=== PATIENT | female | born 1965 | race Caucasian/White ===

== ENCOUNTER → 2017-09-11 | Outpatient (CLI) | payer BC ==
[~2017-09-11] MED LIST: BACTRIM DS 8001 TA1 PO; CIPRO500 MG PO; FLAGYL250 MG PO; GLYBURIDE5 MG PO; METFORMIN500 MG PO; MICRONASE5 MG PO; NAPROSYN500 MG PO; NORCO 325 MG-51 TAB PO; PHENERGAN W/ DE30 ML PO; PREDNICOT10 MG PO; PROAIR HFA0.09 MG/AC INH; ZOFRAN4 MG PO
== END | disposition home or self-care (01) ==
LOC: RAD 14:50
DX: D16.02 Benign neoplasm of scapula and long bones of left upper limb (principal)

== ENCOUNTER → 2017-10-03 | Outpatient (CLI) | payer BC | END | disposition home or self-care (01) | LOC: MAMMO 10:12 | DX: N63.20 Unspecified lump in the left breast, unspecified quadrant (principal); N63.10 Unspecified lump in the right breast, unspecified quadrant ==

== ENCOUNTER 2019-03-09 17:43 | Emergency (ER) | payer OTHER ==
[~2019-03-09] VITALS: Wt 80.2 kg
--- NOTE | ~2019-03-09 | EKG ---
[place], [place] ELECTROCARDIOGRAM REPORT NAME: ANIKA FAM UNIT #: [id number] ROOM: DOCTOR: EPIPHANY DRAFT REPORT BIRTHDATE: [birth year] [facility] Test Date: 2019-03-09 Test Time: 18:23:56 Pat Name: ANIKA FAM Department: Room: Gender: F [employer]: : 1965 Requested By: SALOME FERGUSON Order Number: [id number] Reading MD: Karol Gupta MD Measurements Intervals [place] Rate: 101 P: 42 OK: 120 QRS: 12 QRSD: 77 T: 33 QT: 350 QTc: 454 Interpretive Statements Sinus tachycardia Normal ECG Compared to ECG 02/19/2019 13:35:58 Sinus rhythm no longer present T-wave abnormality no longer present Electronically Signed On 03-12-2019 7:14:52 PDT by Karol Gupta MD CM:EKGRPT:ELECTROCARDIOGRAM REPORT [id number] SALOME ROWLAND DRAFT REPORT SALOME FERGUSON MD
[~2019-03-09 17:43] MED LIST changes: +ASPIRIN ADULT L81 M1 PO; +METFORMIN ER500 MG PO; +SIMVASTATIN40 MG PO; +TAMOXIFEN CITRA20 MG PO; +VITAMIN D-32000 UNI1 PO
[2019-03-09 18:34] LABS: BASO # 0.1 10*3/uL (0.0-0.1); BASO % 0.9 % (0.0-1.0); EOS # 0.3 10*3/uL (0.0-0.4); EOS % 3.6 % (1.0-4.0); HEMATOCRIT 39.3 % (37.0-47.0); HEMOGLOBIN 13.2 g/dl (12.0-16.0); LYMPH # 1.9 10*3/uL (1.3-4.4); LYMPH % 23.3 % (27.0-41.0); MEAN CELL VOLUME 85.1 fl (81.0-99.0); MEAN CORPUSCULAR HGB 28.6 pg (27.0-31.0); MEAN CORPUSCULAR HGB CONC 33.6 g/dl (33.0-37.0); MEAN PLATELET VOLUME 9.4 fl (9.6-12.3); MONO # 0.6 10*3/uL (0.1-1.0); MONO % 7.5 % (3.0-9.0); NEUT # 5.1 10*3/uL (2.3-7.9); NEUT % 64.2 % (47.0-73.0); PLATELET COUNT AUTOMATED 271 10*3/uL (130-400); RED BLOOD COUNT 4.62 10*6/uL (4.10-5.10)
[2019-03-09 18:47] LABS: ACT PARTIAL THROMBO TIME 20.8 SECONDS (20.0-32.1); INTERNATIONAL NORM RATIO 0.9 (2.0-3.5)
[2019-03-09 18:50] LABS: ALBUMIN 3.7 gm/dl (3.1-4.5); ALKALINE PHOSPHATASE 56 U/L (45-117); BUN 12 mg/dl (7-24); CHLORIDE 103 mmol/L (98-107); CREATININE 0.98 mg/dL (0.55-1.02); SGOT/AST 10 IU/L (3-35); SGPT/ALT 22 U/L (12-78); SODIUM 138 mmol/L (136-145); TOTAL PROTEIN 7.2 gm/dL (6.4-8.2)
[2019-03-09 18:53] LABS: ETHYL ALCOHOL < 3.0 mg/dl (<3); TROPONIN I < 0.015 ng/ml (<0.045)
[2019-03-09 19:19] LABS: BILIRUBIN NEGATIVE (NEGATIVE); BLOOD NEGATIVE (NEGATIVE); CLARITY CLEAR (CLEAR); COLOR YELLOW (YELLOW); GLUCOSE NEGATIVE (NEGATIVE); KETONE NEGATIVE (NEGATIVE); LEUKO ESTERASE NEGATIVE (NEGATIVE); NITRITE NEGATIVE (NEGATIVE); SPECIFIC GRAVITY <= 1.005 (1.005-1.030); UROBILINOGEN 0.2 E.U./dl (0.2-1.0)
[2019-03-09 19:28] LABS: URINE AMPHETAMINES < 1000 (1000ng/ml); URINE BARBITURATES < 200 (200ng/ml); URINE BENZODIAZEPINES < 200 (200ng/ml); URINE CANNABINOIDS (THC) < 50 (50ng/ml); URINE COCAINE < 300 (300ng/ml); URINE METHADONE < 300 (300ng/ml); URINE OPIATES < 300 (300ng/ml)
[2019-03-09 19:29] LABS: URINE PHENCYCLIDINE < 25 (25ng/ml)
[2019-03-09 20:04] LABS: BACTERIA TRACE; EPITHELIAL CELLS 20-25; RBC 0-2 rbc/hpf (0-2); WBC 0-2 wbc/hpf (0-5)
[2019-03-10 07:10] VITALS: BP 105/54
== END 2019-03-10 07:30 | disposition short-term general hospital (02) ==
LOC: ED 17:43
PROVIDERS: Emergency Medicine
DX: R41.82 Altered mental status, unspecified (principal); R53.1 Weakness; G25.3 Myoclonus; R79.1 Abnormal coagulation profile; E11.9 Type 2 diabetes mellitus without complications; I10 Essential (primary) hypertension; Z85.3 Personal history of malignant neoplasm of breast; Z88.0 Allergy status to penicillin; Z79.899 Other long term (current) drug therapy; Z79.82 Long term (current) use of aspirin

== ENCOUNTER 2019-07-13 15:12 | Inpatient (IN) | payer OTHER ==
[~2019-07-13] VITALS: Ht 162.5 cm; Wt 82.2 kg
--- NOTE | ~2019-07-13 | EKG ---
[place], [place] ELECTROCARDIOGRAM REPORT NAME: ANIKA FAM UNIT #: [id number] ROOM: 405 DOCTOR: JANETT DRAFT REPORT BIRTHDATE: [birth year] [facility] Test Date: 2019-07-13 Test Time: 17:50:53 Pat Name: ANIKA FAM Department: Room: 405 Gender: F [employer]: Queenie Barnes : 1965 Requested By: TANGELA MEEKS Order Number: [id number] Reading MD: Denis Rodriguez Measurements Intervals [place] Rate: 99 P: 46 NE: 130 QRS: -3 QRSD: 78 T: 19 QT: 346 QTc: 444 Interpretive Statements Sinus rhythm Compared to ECG 03/09/2019 18:23:56 Sinus tachycardia no longer present Electronically Signed On 07-15-2019 8:05:27 PDT by Denis Rodriguez CM:EKGRPT:ELECTROCARDIOGRAM REPORT [id number] TANGELA ROWLAND DRAFT REPORT TANGELA DYSON
[2019-07-13 15:13] VITALS: BP 147/87
--- NOTE | 2019-07-13 16:10 | NUR ---
TAKEN FOR US.
--- NOTE | 2019-07-13 16:43 | NUR ---
PAIN IS TOLERABLE AT THIS TIME. APPEARS MORE RELAXED AND DENIES ANY NEEDS AT THIS TIME. FAMILY REMAINS AT THE BEDSIDE. WILL CONTINUE TO MONITOR.
[2019-07-13 16:56] LABS: BASO # 0.1 10*3/uL (0.0-0.1); BASO % 1.1 % (0.0-1.0); EOS # 0.3 10*3/uL (0.0-0.4); EOS % 3.1 % (1.0-4.0); HEMATOCRIT 37.8 % (37.0-47.0); HEMOGLOBIN 12.8 g/dl (12.0-16.0); LYMPH # 1.6 10*3/uL (1.3-4.4); LYMPH % 19.2 % (27.0-41.0); MEAN CELL VOLUME 87.7 fl (81.0-99.0); MEAN CORPUSCULAR HGB 29.7 pg (27.0-31.0); MEAN CORPUSCULAR HGB CONC 33.9 g/dl (33.0-37.0); MEAN PLATELET VOLUME 9.3 fl (9.6-12.3); MONO # 0.8 10*3/uL (0.1-1.0); MONO % 9.2 % (3.0-9.0); NEUT # 5.6 10*3/uL (2.3-7.9); NEUT % 66.3 % (47.0-73.0); PLATELET COUNT AUTOMATED 258 10*3/uL (130-400); RED BLOOD COUNT 4.31 10*6/uL (4.10-5.10); RED CELL DISTRI WIDTH 12.5 % (0-14.5); WHITE BLOOD COUNT 8.5 10*3/uL (4.8-10.8)
[2019-07-13 17:09] VITALS: BP 128/70
[2019-07-13 17:12] LABS: ALBUMIN 3.5 gm/dl (3.1-4.5); ALKALINE PHOSPHATASE 130 U/L (45-117); BUN 11 mg/dl (7-24); CHLORIDE 106 mmol/L (98-107); CREATININE 0.83 mg/dL (0.55-1.02); LIPASE 141 U/L (73-393); POTASSIUM 4.1 mmol/L (3.5-5.1); SGOT/AST 29 IU/L (3-35); SGPT/ALT 64 U/L (12-78); SODIUM 138 mmol/L (136-145); TOTAL PROTEIN 6.9 gm/dL (6.4-8.2)
--- NOTE | 2019-07-13 17:48 | NUR ---
ATTEMPTED TO GET UP TO AMBULATE TO BATHROOM BUT IS TOO OFF BALANCE DUE TO MORPHINE. EKG NOW AT THE BEDSIDE AND WHEELCHAIR BROUGHT TO ROOM TO ASSIST TO BATHROOM ONCE THEY ARE DONE.
[2019-07-13 17:52] LABS: ACT PARTIAL THROMBO TIME 22.9 SECONDS (20.0-32.1); INTERNATIONAL NORM RATIO 0.9 (2.0-3.5)
--- NOTE | 2019-07-13 18:51 | NUR ---
NURSE TO NURSE TO KIARA.
[2019-07-13 18:54] VITALS: BP 128/78
[2019-07-13 21:00] VITALS: BP 134/65
--- NOTE | 2019-07-13 21:00 | NUR ---
Time: 2099 A 53 year old FEMALE admitted to under services of YODIT WAITE DO. Pt. arrived via stretcher from ER. Chief complaint: DIFFUSE ABD PAIN, PAIN RUQ ON PALPATION. PT IS VERY TEARFUL. ERIN FREY
[2019-07-13] MEDS ORDERED: DILANTIN100 MG PO ×2 (21:10)
--- NOTE | 2019-07-13 21:46 | NUR ---
MED REC UPDATED AND CORRECT. PT RESTING IN BED WITH EYES CLOSED. HEP LOCK INTACT RAN. NO DISTRESS NOTED. PULSE OX 96% ON 2L. WILL CONT TO MONITOR,
[2019-07-14] VITALS (8 sets, daily range): BP systolic 117–129; BP diastolic 64–78
--- NOTE | 2019-07-14 00:02 | NUR ---
MS 2MG IV FOR C/O'S RUQ PAIN. WILL MONITOR.
--- NOTE | 2019-07-14 01:07 | NUR ---
EARLIER PAIN MED EFFECTIVE, RESTING IN BED WITH EYES CLOSED. APPEARS TO BE SLEEPING.
--- NOTE | 2019-07-14 04:06 | NUR ---
REMAINS SLEEPING WITHOUT DISTRESS. NPO FOR HIDA SCAN THIS AM.
--- NOTE | 2019-07-14 06:13 | NUR ---
SLEPT WELL THIS SHIFT. NO C/O'S ABD PAIN VOICED AT PRESENT.REMAINS NPO.
[2019-07-14 07:27] LABS: BASO # 0.1 10*3/uL (0.0-0.1); BASO % 0.8 % (0.0-1.0); EOS # 0.4 10*3/uL (0.0-0.4); EOS % 4.7 % (1.0-4.0); HEMATOCRIT 36.1 % (37.0-47.0); LYMPH # 1.7 10*3/uL (1.3-4.4); LYMPH % 22.2 % (27.0-41.0); MEAN CELL VOLUME 88.5 fl (81.0-99.0); MEAN CORPUSCULAR HGB 29.4 pg (27.0-31.0); MEAN CORPUSCULAR HGB CONC 33.2 g/dl (33.0-37.0); MEAN PLATELET VOLUME 9.6 fl (9.6-12.3); MONO # 0.7 10*3/uL (0.1-1.0); MONO % 8.7 % (3.0-9.0); NEUT # 4.8 10*3/uL (2.3-7.9); NEUT % 62.7 % (47.0-73.0); PLATELET COUNT AUTOMATED 235 10*3/uL (130-400); RED BLOOD COUNT 4.08 10*6/uL (4.10-5.10); RED CELL DISTRI WIDTH 12.8 % (0-14.5); WHITE BLOOD COUNT 7.6 10*3/uL (4.8-10.8)
[2019-07-14 08:00] LABS: ALBUMIN 3.2 gm/dl (3.1-4.5); BUN 12 mg/dl (7-24); CHLORIDE 104 mmol/L (98-107); CHOLESTEROL 131 mg/dL (<200); CREATININE 0.74 mg/dL (0.55-1.02); PHOSPHOROUS 3.6 mg/dL (2.5-4.9); SGOT/AST 19 IU/L (3-35); SGPT/ALT 52 U/L (12-78); SODIUM 137 mmol/L (136-145); TOTAL PROTEIN 6.3 gm/dL (6.4-8.2); TRIGLYCERIDES 253 mg/dl (<150); VLDL CHOLESTEROL 51 mg/dL (6-40)
[2019-07-14 08:02] LABS: ALKALINE PHOSPHATASE 109 U/L (45-117); HDL CHOLESTEROL 38 mg/dl (40-60); LDL CHOLESTEROL 42 mg/dL (9-159)
[2019-07-14 08:35] LABS: VITAMIN D, 25-HYDROXY 38.5 ng/mL (30-100)
--- NOTE | 2019-07-14 09:00 | NUR ---
Building Surveyor in to talk to patient. Patient states lives at home with family. There are few steps in the home. Physician: radha parada Pharmacy: [facility] health services: none Patient's level of ADLs: INDEPENDENT Patient has working utilities: all working DME: none Follow-up physician's appointment after d/c: will be made by hospitalist nurse director upon discharge Does patient want to access PORTAL?: no Discharge plan discussed with patient, she lives at home with family, she is independent in adls and ambulation she states she will be returning home when medically stable and denies any home needs, case management will follow. HEATHER MCKEON
--- NOTE | 2019-07-14 10:30 | NUR ---
To xray for Hida scan via wheelchair. NPO. Azeb LENNON
--- NOTE | 2019-07-14 11:08 | NUR ---
Another Multi-Disciplinary Team meeting was held on 07/14/19, for the purpose of discharge planning. patient will return home when medically stable and denies any home needs HEATHER MCKEON
--- NOTE | 2019-07-14 12:07 | NUR ---
PT C/O 05/06 RIGHT SIDED ABD PAIN AT THIS TIME AND REQUESTING PAIN MED. MORHPINE GIVEN PER ORDER. WILL MONITOR.
--- NOTE | 2019-07-14 13:30 | NUR ---
PER PATIENT, PAIN MEDICATION WAS EFFECTIVE. STILL C/O PAIN UPON PALPATION, BUT COMFORTABLE AT THIS TIME.
--- NOTE | 2019-07-14 20:12 | NUR ---
5 UP TO BR. GAIT STEADY. RESTING IN BED WITH HOB ELEVATED. CALL LIGHT IN REACH. FAMILY VS. HEP LOCK INTACT. DENIES C/O'S RUQ PAIN AT PRESENT.
--- NOTE | 2019-07-14 22:08 | NUR ---
RESTING IN BED WATCHING TV. NO DISTRESS NOTED.
--- NOTE | 2019-07-14 23:30 | NUR ---
PATIENT REQUESTED A SLEEPING PILL, STATED SHE DIDNT SLEEP MUCH LAST NIGHT. RESTORIL GIVEN. WILL MONITOR AND REASSESS.
[2019-07-15] VITALS: BP 100/52
--- NOTE | 2019-07-15 02:07 | NUR ---
PATIENT RESTING, NO SIGNS OF DISTRESS. RESTORIL EFFECTIVE.
--- NOTE | 2019-07-15 02:41 | NUR ---
24 HR chart check completed.
[2019-07-15 07:17] LABS: BASO % 0.6 % (0.0-1.0); EOS # 0.4 10*3/uL (0.0-0.4); EOS % 5.4 % (1.0-4.0); HEMATOCRIT 36.3 % (37.0-47.0); HEMOGLOBIN 12.3 g/dl (12.0-16.0); LYMPH # 1.4 10*3/uL (1.3-4.4); LYMPH % 22.4 % (27.0-41.0); MEAN CELL VOLUME 87.7 fl (81.0-99.0); MEAN CORPUSCULAR HGB 29.7 pg (27.0-31.0); MEAN CORPUSCULAR HGB CONC 33.9 g/dl (33.0-37.0); MEAN PLATELET VOLUME 9.5 fl (9.6-12.3); MONO # 0.6 10*3/uL (0.1-1.0); MONO % 8.7 % (3.0-9.0); PLATELET COUNT AUTOMATED 250 10*3/uL (130-400); RED BLOOD COUNT 4.14 10*6/uL (4.10-5.10); RED CELL DISTRI WIDTH 12.8 % (0-14.5); WHITE BLOOD COUNT 6.4 10*3/uL (4.8-10.8)
[2019-07-15 07:47] LABS: ALBUMIN 3.4 gm/dl (3.1-4.5); ALKALINE PHOSPHATASE 108 U/L (45-117); BUN 8 mg/dl (7-24); CHLORIDE 105 mmol/L (98-107); CREATININE 0.73 mg/dL (0.55-1.02); POTASSIUM 3.9 mmol/L (3.5-5.1); SGOT/AST 22 IU/L (3-35); SGPT/ALT 50 U/L (12-78); SODIUM 138 mmol/L (136-145); TOTAL PROTEIN 6.6 gm/dL (6.4-8.2)
[2019-07-15 08:00] VITALS: BP 113/61
--- NOTE | 2019-07-15 09:00 | NUR ---
case management visits with patient, she states she is being discharged to home today, patient denies any home needs at this time
[2019-07-15] MEDS ORDERED: PANTOPRAZOLE SO40 MG PO (10:20)
[2019-07-15 12:00] VITALS: BP 113/64
--- NOTE | 2019-07-15 12:09 | NUR ---
Discharge instructions reviewed with patient/family. Patient receptive and verbalizes understanding. Follow-up care arranged. Written instructions given to patient/family. RAOUL GAGNON
== END 2019-07-15 12:09 | disposition home or self-care (01) | DRG 445 ==
LOC: ED 15:12 → EDHOLD 19:33 → 4E 19:33
PROVIDERS: Internal Medicine; Physician Assistant; ADMIT Internal Medicine
PROC: 0DB68ZX Excision of Stomach, Via Natural or Artificial Opening Endoscopic, Diagnostic (ICD-10-PCS; principal; 2019-07-14)
DX: K80.50 Calculus of bile duct without cholangitis or cholecystitis without obstruction (principal); E87.2 Acidosis; D86.9 Sarcoidosis, unspecified; R00.0 Tachycardia, unspecified; E11.65 Type 2 diabetes mellitus with hyperglycemia; I10 Essential (primary) hypertension; M06.9 Rheumatoid arthritis, unspecified; E66.9 Obesity, unspecified; K29.00 Acute gastritis without bleeding; K29.80 Duodenitis without bleeding; K29.70 Gastritis, unspecified, without bleeding; Z88.0 Allergy status to penicillin; Z98.891 History of uterine scar from previous surgery; Z90.710 Acquired absence of both cervix and uterus; Z83.3 Family history of diabetes mellitus; Z82.49 Family history of ischemic heart disease and other diseases of the circulatory system; Z79.84 Long term (current) use of oral hypoglycemic drugs; Z68.30 Body mass index [BMI] 30.0-30.9, adult

== ENCOUNTER → 2019-07-23 | Outpatient (CLI) | payer OTHER ==
[~2019-07-23] MED LIST changes: +DILANTIN100 MG PO; +PANTOPRAZOLE SO40 MG PO
== END | disposition home or self-care (01) ==
LOC: RAD 14:23
DX: M54.9 Dorsalgia, unspecified (principal); R10.11 Right upper quadrant pain; R31.9 Hematuria, unspecified; R19.7 Diarrhea, unspecified

== ENCOUNTER → 2019-09-09 | Outpatient (CLI) | payer OTHER | END | disposition home or self-care (01) | LOC: US 15:39 | DX: E04.1 Nontoxic single thyroid nodule (principal) ==

== ENCOUNTER 2019-10-12 19:17 | Emergency (ER) | payer OTHER ==
[~2019-10-12] VITALS: Ht 167.6 cm; Wt 68.0 kg
[2019-10-12 19:26] VITALS: BP 138/80
[2019-10-12 19:53] LABS: BASO # 0.1 10*3/uL (0.0-0.1); BASO % 0.9 % (0.0-1.0); EOS # 0.2 10*3/uL (0.0-0.4); EOS % 3.2 % (1.0-4.0); HEMATOCRIT 44.2 % (37.0-47.0); HEMOGLOBIN 14.5 g/dl (12.0-16.0); LYMPH # 1.9 10*3/uL (1.3-4.4); LYMPH % 25.2 % (27.0-41.0); MEAN CELL VOLUME 84.7 fl (81.0-99.0); MEAN CORPUSCULAR HGB 27.8 pg (27.0-31.0); MEAN CORPUSCULAR HGB CONC 32.8 g/dl (33.0-37.0); MEAN PLATELET VOLUME 9.7 fl (9.6-12.3); MONO # 0.6 10*3/uL (0.1-1.0); MONO % 8.6 % (3.0-9.0); NEUT # 4.6 10*3/uL (2.3-7.9); NEUT % 61.6 % (47.0-73.0); PLATELET COUNT AUTOMATED 320 10*3/uL (130-400); RED BLOOD COUNT 5.22 10*6/uL (4.10-5.10); RED CELL DISTRI WIDTH 12.2 % (0-14.5); WHITE BLOOD COUNT 7.5 10*3/uL (4.8-10.8)
[2019-10-12 20:06] LABS: ACT PARTIAL THROMBO TIME 24.3 SECONDS (20.0-32.1); INTERNATIONAL NORM RATIO 0.9 (2.0-3.5)
[2019-10-12 20:11] LABS: ALBUMIN 4.1 gm/dl (3.1-4.5); ALKALINE PHOSPHATASE 89 U/L (45-117); BUN 14 mg/dl (7-24); CHLORIDE 106 mmol/L (98-107); CREATININE 1.07 mg/dL (0.55-1.02); POTASSIUM 3.9 mmol/L (3.5-5.1); SGOT/AST 15 IU/L (3-35); SGPT/ALT 23 U/L (12-78); SODIUM 139 mmol/L (136-145); TOTAL PROTEIN 8.1 gm/dL (6.4-8.2)
[2019-10-12 20:12] LABS: TROPONIN I < 0.015 ng/ml (<0.045)
== END 2019-10-12 21:46 | disposition home or self-care (01) ==
LOC: ED 19:17
PROVIDERS: Emergency Medicine
DX: R07.89 Other chest pain (principal); F41.9 Anxiety disorder, unspecified; E11.9 Type 2 diabetes mellitus without complications; E66.9 Obesity, unspecified; E78.00 Pure hypercholesterolemia, unspecified; I10 Essential (primary) hypertension; Z68.34 Body mass index [BMI] 34.0-34.9, adult; Z79.899 Other long term (current) drug therapy; Z79.82 Long term (current) use of aspirin; Z88.0 Allergy status to penicillin

== ENCOUNTER → 2020-09-02 | Outpatient (CLI) | payer OTHER | END | disposition home or self-care (01) | LOC: US 12:30 | PROVIDERS: ATTEND Internal Medicine Endocrinology, Diabetes & Metabolism | DX: E04.2 Nontoxic multinodular goiter (principal) ==

== ENCOUNTER → 2021-01-26 | Outpatient (CLI) | payer OTHER ==
[~2021-01-26] MED LIST changes: +JARDIANCE25 MG PO; +LEXAPRO5 M1 PO; +TRULICITY3 MG/0.5 M SQ; +VISTARIL25 MG PO
== END | disposition home or self-care (01) ==
LOC: CARD 00:08
PROVIDERS: ATTEND Nurse Practitioner Family
DX: I25.89 Other forms of chronic ischemic heart disease (principal); R53.81 Other malaise; R53.83 Other fatigue

== ENCOUNTER → 2022-01-30 | Outpatient (CLI) | payer OTHER | END | disposition home or self-care (01) | LOC: US 14:00 | PROVIDERS: ATTEND Nurse Practitioner Primary Care | DX: E04.2 Nontoxic multinodular goiter (principal) ==

== ENCOUNTER → 2022-03-05 | Outpatient (CLI) | payer OTHER ==
[2022-03-05 09:53] LABS: ACT PARTIAL THROMBO TIME 25.6 SECONDS (20.0-32.1); INTERNATIONAL NORM RATIO 0.9 (2.0-3.5)
== END | disposition home or self-care (01) ==
LOC: RAD 09:30 → EDSTATUS 09:30
PROVIDERS: ATTEND Nurse Practitioner Primary Care
DX: E04.1 Nontoxic single thyroid nodule (principal); Z79.01 Long term (current) use of anticoagulants

== ENCOUNTER → 2023-02-15 | Outpatient (CLI) | payer OTHER | END | disposition home or self-care (01) | LOC: CARD 00:29 | PROVIDERS: ATTEND Physician Assistant | DX: I49.3 Ventricular premature depolarization (principal) ==

== ENCOUNTER → 2023-04-24 | Outpatient (CLI) | payer OTHER | END | disposition home or self-care (01) | LOC: RAD 10:58 | PROVIDERS: ATTEND Physician Assistant | DX: M51.37 Other intervertebral disc degeneration, lumbosacral region (principal); M25.78 Osteophyte, vertebrae; R20.0 Anesthesia of skin; G89.29 Other chronic pain ==

== ENCOUNTER → 2023-11-26 | Outpatient (CLI) | payer OTHER | END | disposition home or self-care (01) | LOC: RESCLI 01:26 | PROVIDERS: ATTEND Internal Medicine | DX: E11.65 Type 2 diabetes mellitus with hyperglycemia (principal); G89.29 Other chronic pain; D05.12 Intraductal carcinoma in situ of left breast; E55.9 Vitamin D deficiency, unspecified; E78.2 Mixed hyperlipidemia; E04.1 Nontoxic single thyroid nodule; F39 Unspecified mood [affective] disorder; F41.9 Anxiety disorder, unspecified; I10 Essential (primary) hypertension; I49.3 Ventricular premature depolarization; G62.9 Polyneuropathy, unspecified; Z86.2 Personal history of diseases of the blood and blood-forming organs and certain disorders involving the immune mechanism; Z88.0 Allergy status to penicillin; Z79.899 Other long term (current) drug therapy; Z98.890 Other specified postprocedural states ==

== ENCOUNTER → 2023-12-07 | Outpatient (CLI) | payer MEDICARE ==
[2023-12-07 11:13] LABS: BASO # 0.1 10*3/uL (0.0-0.1); BASO % 1.2 % (0.0-1.0); EOS # 0.2 10*3/uL (0.0-0.4); EOS % 3.8 % (1.0-4.0); HEMATOCRIT 44.1 % (37.0-47.0); LYMPH # 1.6 10*3/uL (1.3-4.4); LYMPH % 28.5 % (27.0-41.0); MEAN CELL VOLUME 87.2 fl (81.0-99.0); MEAN CORPUSCULAR HGB 27.3 pg (27.0-31.0); MEAN CORPUSCULAR HGB CONC 31.3 g/dl (33.0-37.0); MEAN PLATELET VOLUME 9.2 fl (9.6-12.3); MONO # 0.6 10*3/uL (0.1-1.0); MONO % 9.6 % (3.0-9.0); NEUT # 3.2 10*3/uL (2.3-7.9); NEUT % 56.4 % (47.0-73.0); PLATELET COUNT AUTOMATED 305 10*3/uL (130-400); RED BLOOD COUNT 5.06 10*6/uL (4.10-5.10); RED CELL DISTRI WIDTH 14.5 % (0-14.5); WHITE BLOOD COUNT 5.8 10*3/uL (4.8-10.8)
[2023-12-07 11:38] LABS: ALKALINE PHOSPHATASE 110 U/L (46-116); BUN 14 mg/dl (9-23); CHLORIDE 106 mmol/L (98-107); CHOLESTEROL 203 mg/dL (<200); LDL CHOLESTEROL 125 mg/dL (9-159); POTASSIUM 4.4 mmol/L (3.4-5.1); SGPT/ALT 16 U/L (5-49); TOTAL PROTEIN 7.7 gm/dL (6.0-8.0); TRIGLYCERIDES 145 mg/dl (<150)
== END | disposition home or self-care (01) ==
LOC: LAB 10:55
PROVIDERS: ATTEND Nurse Practitioner Primary Care
DX: E78.2 Mixed hyperlipidemia (principal); E04.1 Nontoxic single thyroid nodule; E11.65 Type 2 diabetes mellitus with hyperglycemia; E55.9 Vitamin D deficiency, unspecified

== ENCOUNTER → 2024-01-09 | Outpatient (CLI) | payer MEDICARE | END | disposition home or self-care (01) | LOC: US 12:30 | PROVIDERS: ATTEND Nurse Practitioner Primary Care | DX: E04.2 Nontoxic multinodular goiter (principal) ==

== ENCOUNTER → 2024-03-10 | Outpatient (CLI) | payer MEDICARE ==
[2024-03-10 12:16] LABS: CHOLESTEROL 222 mg/dL (<200); LDL CHOLESTEROL 144 mg/dL (9-159); TRIGLYCERIDES 166 mg/dl (<150)
== END | disposition home or self-care (01) ==
LOC: LAB 11:36
PROVIDERS: ATTEND Nurse Practitioner Primary Care
DX: E11.65 Type 2 diabetes mellitus with hyperglycemia (principal); E55.9 Vitamin D deficiency, unspecified

== ENCOUNTER → 2024-06-20 | Outpatient (CLI) | payer MEDICARE ==
[2024-06-20 08:49] LABS: ALKALINE PHOSPHATASE 84 U/L (46-116); BUN 16 mg/dl (9-23); CHLORIDE 108 mmol/L (98-107); CHOLESTEROL 178 mg/dL (<200); LDL CHOLESTEROL 112 mg/dL (9-159); POTASSIUM 4.3 mmol/L (3.4-5.1); SGPT/ALT 17 U/L (5-49); TOTAL PROTEIN 7.2 gm/dL (6.0-8.0); TRIGLYCERIDES 103 mg/dl (<150)
== END | disposition home or self-care (01) ==
LOC: LAB 08:14
PROVIDERS: ATTEND Nurse Practitioner Primary Care
DX: I10 Essential (primary) hypertension (principal); E55.9 Vitamin D deficiency, unspecified; E11.65 Type 2 diabetes mellitus with hyperglycemia

== ENCOUNTER → 2024-07-01 | Outpatient (CLI) | payer MEDICARE | END | disposition home or self-care (01) | LOC: US 00:50 | PROVIDERS: ATTEND Nurse Practitioner Primary Care | DX: I73.9 Peripheral vascular disease, unspecified (principal); R60.0 Localized edema ==

== ENCOUNTER 2025-01-23 00:24 | Observation (INO) | payer MEDICARE ==
[2025-01-23] VITALS (11 sets, daily range): BP systolic 97–127; BP diastolic 48–69
[~2025-01-23] VITALS: Ht 162.5 cm; Wt 78.2 kg
[2025-01-23] MEDS ORDERED: OZEMPIC0.25 MG/03 SQ (00:40)
[2025-01-23] MEDS ORDERED: PRAVASTATIN SOD20 MG PO (00:44)
[2025-01-23] MEDS ORDERED: MORPHINE Sulfate 2 MG/ML SYR IV ONE (00:45)
[2025-01-23] MEDS ORDERED: GABAPENTIN100 M2 PO (00:45)
[2025-01-23] MEDS ORDERED: Ondansetron Hydrochloride 4 MG/2 ML VIAL IV ONE (00:45)
[2025-01-23 00:58] LABS: BASO # 0.1 10*3/uL (0.0-0.1); BASO % 1.1 % (0.0-1.0); EOS # 0.6 10*3/uL (0.0-0.4); EOS % 7.8 % (1.0-4.0); HEMATOCRIT 39.7 % (37.0-47.0); MEAN CELL VOLUME 87.1 fl (81.0-99.0); MEAN CORPUSCULAR HGB 27.9 pg (27.0-31.0); MEAN PLATELET VOLUME 9.7 fl (9.6-12.3); MONO # 0.8 10*3/uL (0.1-1.0); MONO % 9.9 % (3.0-9.0); NEUT # 3.7 10*3/uL (2.3-7.9); NEUT % 48.4 % (47.0-73.0); PLATELET COUNT AUTOMATED 275 10*3/uL (130-400); RED BLOOD COUNT 4.56 10*6/uL (4.10-5.10); RED CELL DISTRI WIDTH 13.3 % (0-14.5); WHITE BLOOD COUNT 7.6 10*3/uL (4.8-10.8)
[2025-01-23 01:20] LABS: POTASSIUM 4.8 mmol/L (3.4-5.1); TOTAL PROTEIN 7.3 gm/dL (6.0-8.0)
[2025-01-23] MEDS ORDERED: MORPHINE Sulfate 2 MG/ML SYR IV PRN (05:15)
[2025-01-23] MEDS ORDERED: Ondansetron Hydrochloride 4 MG/2 ML VIAL IV PRN (05:15)
[2025-01-23] MEDS ORDERED: Acetaminophen/Hydrocodone 5 MG/325 MG TABLET PO PRN (05:15)
[2025-01-23] MEDS ORDERED: SODIUM CHLORIDE 0.9% 1,000 ML IV ONE (08:40)
[2025-01-23] MEDS ORDERED: PIOGLITAZONE HC30 MG PO (08:57)
[2025-01-23] MEDS ORDERED: hydrOXYzine pamoate 25 MG CAP PO PRN (09:43)
[2025-01-23] MEDS ORDERED: ESCITALOPRAM OXALATE 10 MG TAB PO SCH (10:00)
[2025-01-23] MEDS ORDERED: Pioglitazone Hydrochloride 15 MG TAB PO SCH (10:00)
[2025-01-23] MEDS ORDERED: HEPARIN SODIUM 5,000 UNIT/ML VIAL SC SCH (10:00)
[2025-01-23] MEDS ORDERED: hydrOXYzine pamoate 25 MG CAP PO SCH (10:00)
[2025-01-23] MEDS ORDERED: Metoprolol Tartrate 25 MG TAB PO SCH (10:00)
[2025-01-23] MEDS ORDERED: ASPIRIN, CHEWABLE 81 MG TAB PO SCH (10:00)
[2025-01-23] MEDS ORDERED: GABAPENTIN 300 MG CAP PO SCH (22:00)
[2025-01-23] MEDS ORDERED: GABAPENTIN 100 MG CAP PO SCH (22:00)
[2025-01-23] MEDS ORDERED: ATORVASTATIN CALCIUM 80 MG TAB PO SCH (22:00)
[2025-01-24] VITALS: BP 92/30
[2025-01-24] MEDS ORDERED: SODIUM CHLORIDE 0.9% 1,000 ML IV ONE ×2 (01:40→02:36)
[2025-01-24 06:48] LABS: BASO # 0.1 10*3/uL (0.0-0.1); BASO % 1.6 % (0.0-1.0); EOS # 0.7 10*3/uL (0.0-0.4); EOS % 12.2 % (1.0-4.0); HEMATOCRIT 37.6 % (37.0-47.0); MEAN CELL VOLUME 87.9 fl (81.0-99.0); MEAN CORPUSCULAR HGB 28.7 pg (27.0-31.0); MEAN CORPUSCULAR HGB CONC 32.7 g/dl (33.0-37.0); MONO # 0.5 10*3/uL (0.1-1.0); MONO % 8.7 % (3.0-9.0); NEUT # 1.9 10*3/uL (2.3-7.9); NEUT % 34.1 % (47.0-73.0); PLATELET COUNT AUTOMATED 255 10*3/uL (130-400); RED BLOOD COUNT 4.28 10*6/uL (4.10-5.10); RED CELL DISTRI WIDTH 13.7 % (0-14.5); WHITE BLOOD COUNT 5.5 10*3/uL (4.8-10.8)
[2025-01-24 06:51] LABS: BUN 12 mg/dl (9-23); CHLORIDE 106 mmol/L (98-107); CHOLESTEROL 140 mg/dL (<200); LDL CHOLESTEROL 68 mg/dL (9-159); POTASSIUM 4.3 mmol/L (3.4-5.1); TRIGLYCERIDES 136 mg/dl (<150)
[2025-01-24 08:00] VITALS: BP 106/55
[2025-01-24 12:00] VITALS: BP 105/54
[2025-01-24 16:00] VITALS: BP 110/60
[2025-01-24 20:00] VITALS: BP 113/52
[2025-01-25] VITALS: BP 105/49
[2025-01-25] MEDS ORDERED: Regadenoson 0.4 MG/5 ML SYR IV ONE (06:30)
[2025-01-25 06:31] LABS: BASO # 0.1 10*3/uL (0.0-0.1); BASO % 1.8 % (0.0-1.0); EOS # 0.7 10*3/uL (0.0-0.4); EOS % 10.8 % (1.0-4.0); HEMATOCRIT 38.2 % (37.0-47.0); MEAN CELL VOLUME 86.4 fl (81.0-99.0); MEAN CORPUSCULAR HGB 27.8 pg (27.0-31.0); MEAN CORPUSCULAR HGB CONC 32.2 g/dl (33.0-37.0); MEAN PLATELET VOLUME 9.9 fl (9.6-12.3); MONO # 0.6 10*3/uL (0.1-1.0); MONO % 9.7 % (3.0-9.0); NEUT # 2.8 10*3/uL (2.3-7.9); NEUT % 44.8 % (47.0-73.0); PLATELET COUNT AUTOMATED 259 10*3/uL (130-400); RED BLOOD COUNT 4.42 10*6/uL (4.10-5.10); RED CELL DISTRI WIDTH 13.3 % (0-14.5); WHITE BLOOD COUNT 6.2 10*3/uL (4.8-10.8)
[2025-01-25 06:41] LABS: BUN 13 mg/dl (9-23); CHLORIDE 105 mmol/L (98-107)
[2025-01-25 08:00] VITALS: BP 122/59
[2025-01-25 12:00] VITALS: BP 106/56; BP 153/83
[2025-01-25 16:00] VITALS: BP 100/54
== END 2025-01-25 18:10 | disposition home or self-care (01) ==
LOC: ED 00:24 → EDHOLD 04:36 → 5E 07:41
PROVIDERS: Emergency Medicine; Internal Medicine; Student in an Organized Health Care Education/Training Program; ADMIT Student in an Organized Health Care Education/Training Program; ATTEND Student in an Organized Health Care Education/Training Program
DX: R07.89 Other chest pain (principal); I12.9 Hypertensive chronic kidney disease with stage 1 through stage 4 chronic kidney disease, or unspecified chronic kidney disease; N18.30 Chronic kidney disease, stage 3 unspecified; E78.00 Pure hypercholesterolemia, unspecified; E11.65 Type 2 diabetes mellitus with hyperglycemia; M06.9 Rheumatoid arthritis, unspecified; N17.0 Acute kidney failure with tubular necrosis; R00.0 Tachycardia, unspecified; D86.9 Sarcoidosis, unspecified; E66.9 Obesity, unspecified; Z68.29 Body mass index [BMI] 29.0-29.9, adult; Z88.0 Allergy status to penicillin; Z88.8 Allergy status to other drugs, medicaments and biological substances; Z79.82 Long term (current) use of aspirin; Z79.899 Other long term (current) drug therapy

== ENCOUNTER → 2025-02-05 | Outpatient (CLI) | payer MEDICARE ==
[~2025-02-05] MED LIST changes: +GABAPENTIN100 M2 PO; +OZEMPIC0.25 MG/03 SQ; +PIOGLITAZONE HC30 MG PO; +PRAVASTATIN SOD20 MG PO
[2025-02-05 15:28] LABS: FREE T4 1.18 ng/dl (0.89-1.76)
== END | disposition home or self-care (01) ==
LOC: LAB 14:36
PROVIDERS: ATTEND Internal Medicine Endocrinology, Diabetes & Metabolism
DX: B00.1 Herpesviral vesicular dermatitis (principal)

== ENCOUNTER 2025-07-03 14:42 | Inpatient (IN) | payer MEDICARE ==
[2025-07-03] VITALS (7 sets, daily range): BP systolic 104–142; BP diastolic 51–121
[~2025-07-03] VITALS: Ht 162.6 cm; Wt 73.9 kg
[2025-07-03] MEDS ORDERED: SODIUM CHLORIDE 0.9% 1,000 ML IV ONE (14:50)
[2025-07-03] MEDS ORDERED: IOHEXOL 350 MG/ML 100 ML VIAL IV ONE ×2 (14:55→15:15)
[2025-07-03] MEDS ORDERED: SODIUM CHLORIDE 0.9% 100 ML BAG IV ONE (14:55)
[2025-07-03] MEDS ORDERED: SODIUM CHLORIDE 0.9% 100 ML IV ONE (15:14)
[2025-07-03 15:22] LABS: BASO # 0.1 10*3/uL (0.0-0.1); BASO % 1.1 % (0.0-1.0); EOS # 0.3 10*3/uL (0.0-0.4); EOS % 6.1 % (1.0-4.0); MEAN CELL VOLUME 86.7 fl (81.0-99.0); MEAN CORPUSCULAR HGB 27.9 pg (27.0-31.0); MEAN PLATELET VOLUME 9.5 fl (9.6-12.3); MONO # 0.5 10*3/uL (0.1-1.0); MONO % 10.6 % (3.0-9.0); NEUT # 2.2 10*3/uL (2.3-7.9); NEUT % 46.9 % (47.0-73.0); NUCLEATED RED BLOOD CELL 0.0 % (0.0-0.0); NUCLEATED RED BLOOD CELL 0.0 10*3/uL (0.0-0.0); PLATELET COUNT AUTOMATED 266 10*3/uL (130-400); RED CELL DISTRI WIDTH 13.1 % (0-14.5)
[2025-07-03] MEDS ORDERED: RECOMBINANT IV SCH ×2 (15:30→15:31)
[2025-07-03] MEDS ORDERED: ALTEPLASE IV SCH ×2 (15:30→15:31)
[2025-07-03] MEDS ORDERED: INFUSION IV SCH (15:30)
[2025-07-03 15:35] LABS: ACT PARTIAL THROMBO TIME 24.8 SECONDS (20.0-32.1)
[2025-07-03 15:51] LABS: BUN 22 mg/dl (9-23)
[2025-07-03 15:52] LABS: ETHYL ALCOHOL < 3.0 mg/dl (<3)
[2025-07-03] MEDS ORDERED: SODIUM CHLORIDE 0.9% 1,000 ML IV SCH (17:05)
[2025-07-03] MEDS ORDERED: Labetalol Hydrochloride 20 MG/4 ML SYR IV PRN (19:10)
[2025-07-03] MEDS ORDERED: ATORVASTATIN CA80 M1 PO (21:52)
[2025-07-04] MEDS ORDERED: ATORVASTATIN CALCIUM 80 MG TAB PO SCH (10:00)
== END 2025-07-03 21:35 | disposition short-term general hospital (02) | DRG 63 ==
LOC: ED 14:42 → EDHOLD 16:36 → ICCU 16:48
PROVIDERS: Emergency Medicine; ADMIT Internal Medicine; ATTEND Internal Medicine
DX: I63.9 Cerebral infarction, unspecified (principal); E11.40 Type 2 diabetes mellitus with diabetic neuropathy, unspecified; F41.9 Anxiety disorder, unspecified; R29.708 NIHSS score 8; E11.22 Type 2 diabetes mellitus with diabetic chronic kidney disease; N18.30 Chronic kidney disease, stage 3 unspecified; I12.9 Hypertensive chronic kidney disease with stage 1 through stage 4 chronic kidney disease, or unspecified chronic kidney disease; E11.65 Type 2 diabetes mellitus with hyperglycemia; Z88.0 Allergy status to penicillin; Z88.8 Allergy status to other drugs, medicaments and biological substances; Z79.899 Other long term (current) drug therapy; Z79.01 Long term (current) use of anticoagulants; Z79.2 Long term (current) use of antibiotics; Z98.891 History of uterine scar from previous surgery; Z90.710 Acquired absence of both cervix and uterus; Z83.3 Family history of diabetes mellitus; Z82.49 Family history of ischemic heart disease and other diseases of the circulatory system; Z85.3 Personal history of malignant neoplasm of breast

== ENCOUNTER → 2025-07-19 | Outpatient (CLI) | payer MEDICARE ==
[~2025-07-19] MED LIST changes: +ATORVASTATIN CA80 M1 PO
[2025-07-21 02:07] LABS: PROTEIN S - FUNCTIONAL 103 % (63-140)
[2025-07-22 12:07] LABS: DILUTE PROTHROMBIN TIME 36.4 sec (0.0-47.6); DPT CONFIRM RATIO 1.14 Ratio (0.00-1.34); LUPUS DRVVT 44.7 sec (0.0-47.0); PTT-LA 31.6 sec (0.0-43.5); THROMBIN TIME 20.5 sec (0.0-23.0)
[2025-07-22 13:07] LABS: LUPUS REFLEX INTERPRETATION Comment: (.)
== END | disposition home or self-care (01) ==
LOC: LAB 13:03
PROVIDERS: ATTEND Nurse Practitioner Primary Care
DX: M62.81 Muscle weakness (generalized) (principal); D86.9 Sarcoidosis, unspecified; R29.90 Unspecified symptoms and signs involving the nervous system; I10 Essential (primary) hypertension

== ENCOUNTER → 2025-07-30 | Outpatient (CLI) | payer MEDICARE | END | disposition home or self-care (01) | LOC: US 00:35 | PROVIDERS: ATTEND Nurse Practitioner Primary Care | DX: I65.23 Occlusion and stenosis of bilateral carotid arteries (principal); M62.81 Muscle weakness (generalized); R29.90 Unspecified symptoms and signs involving the nervous system ==